=== PATIENT | male | born 1960 | race Caucasian/White ===

== ENCOUNTER 2020-03-01 18:37 | Inpatient (IN) | payer SELFPAY ==
[~2020-03-01] VITALS: Ht 175.3 cm; Wt 65.9 kg
--- NOTE | 2020-03-01 19:21 | NUR ---
labs drawn by analytical laboratory technician
[2020-03-01 19:31] LABS: BASOPHILS # (AUTO) 0.1 X10'3 (0-0.2); BASOPHILS % (AUTO) 0.5 % (0-1); EOSINOPHILS # (AUTO) 0.1 X10'3 (0-0.9); EOSINOPHILS % (AUTO) 0.4 % (0-6); HEMATOCRIT 25.1 % (42.0-52.0); HEMOGLOBIN 8.2 g/dl (14.0-17.9); LYMPHOCYTES # (AUTO) 1.6 X10'3 (1.1-4.8); MEAN CORPUSCULAR HEMOGLOBIN 35.9 PG (27.0-31.0); MEAN CORPUSCULAR HGB CONC 32.5 g/dL (33.0-36.5); MEAN CORPUSCULAR VOLUME 110.3 FL (78-98); MEAN PLATELET VOLUME 9.1 FL (7.4-10.4); MONOCYTES # (AUTO) 1.7 X10'3 (0-0.9); MONOCYTES % (AUTO) 9.3 % (2-12); NEUTROPHILS # (AUTO) 14.5 X10'3 (1.8-7.7); NEUTROPHILS % (AUTO) 80.8 % (42-75); PLATELET COUNT 255 X10'3 (140-440); RED BLOOD COUNT 2.28 X10'6 (4.70-6.10); RED CELL DISTRIBUTION WIDTH 19.6 % (11.5-14.5); WHITE BLOOD COUNT 17.9 X10'3 (4.5-11.0)
[2020-03-01 19:48] LABS: PARTIAL THROMBOPLASTIN TIME 27 SECONDS (22-32)
[2020-03-01 19:52] LABS: ALANINE AMINOTRANSFERASE 103 U/L (12-78); ALBUMIN 2.1 G/DL (3.4-5.0); ALKALINE PHOSPHATASE 271 IU/L (46-116); BLOOD UREA NITROGEN 27 MG/DL (7-18); BUN/CREATININE RATIO 27.8 (5.4-32.0); CHLORIDE 103 MMOL/L (99-107); CREATININE 0.97 MG/DL (0.60-1.10); LIPASE 182 U/L (73-393); eGFR 79 ML/MIN
[2020-03-01 20:03] LABS: PLATELET ESTIMATE NORMAL
[2020-03-01 20:04] LABS: ANISOCYTOSIS 2+; POIKILOCYTOSIS 2+; POLYCHROMASIA 2+
[2020-03-01 20:07] LABS: ASPARTATE AMINO TRANSFERASE 194 U/L (10-37)
[2020-03-01 20:09] LABS: ALBUMIN/GLOBULIN RATIO 0.4 (1.1-1.5); ANION GAP 14 (8-16); GLUCOSE 130 MG/DL (70-104); SODIUM 142 MMOL/L (135-145); TOTAL PROTEIN 7.6 G/DL (6.4-8.2)
[2020-03-01 20:23] LABS: URINE AMPHETAMINE SCREEN NEGATIVE (Neg); URINE BARBITUATE SCREEN NEGATIVE (Neg); URINE BENZODIAZEPINES SCREEN NEGATIVE (Neg); URINE CANNABINOID SCREEN NEGATIVE (Neg); URINE COCAINE SCREEN NEGATIVE (Neg); URINE METHADONE SCREEN NEGATIVE (Neg); URINE OPIATE SCREEN NEGATIVE (Neg); URINE PHENCYCLIDINE SCREEN NEGATIVE (Neg)
[2020-03-01 20:23] LABS: CALCIUM 8.8 MG/DL (8.5-10.1); ETHANOL < 0.010 GM/DL (0.0-0.010)
[2020-03-01 20:26] LABS: ACETAMINOPHEN < 2.0 UG/ML (10-30); BILIRUBIN,TOTAL 27.3 MG/DL (0.1-1.0)
[2020-03-01 20:27] LABS: CLARITY,URINE Cloudy (Clear); COLOR,URINE BROWN (Yellow); UA COLLECTION TYPE CLN CATCH MIDSTREAM
[2020-03-01 20:34] LABS: BACTERIA,URINE NONE SEEN /HPF (Neg)
[2020-03-01 20:35] LABS: SQUAMOUS EPITHELIAL CELL,UR NONE SEEN /LPF (FEW); TRANSITIONAL EPI CELLS,URINE MODERATE /HPF
[2020-03-01 20:36] LABS: SPERM FEW /HPF (NEGATIVE)
[2020-03-01 20:37] LABS: RBC,URINE 0-2 /HPF (0-2); WBC,URINE 0-4 /HPF (0-4)
[2020-03-01] MEDS ORDERED: ondansetron/PF 4mg/2ml inj IV PRN (20:50)
[2020-03-01] MEDS ORDERED: diphenhydrAMINE 25mg capsule PO PRN (20:50)
[2020-03-01] MEDS ORDERED: magnesium Cl slow-release 64mg tablet PO PRN (20:50)
[2020-03-01] MEDS ORDERED: potassium Cl 20 mEq SR tablet PO PRN ×2 (20:50)
[2020-03-01] MEDS ORDERED: magnesium 2GM in 50ml NS 50 ML IV PRN (20:50)
[2020-03-01] MEDS ORDERED: morphine 2 MG/ML inj. syringe IV PRN (20:50)
[2020-03-01] MEDS ORDERED: acetaminophen 325mg tablet PO PRN (20:50)
[2020-03-01] MEDS ORDERED: potassium CL 10mEq/100ml bag 100 ML IV PRN ×2 (20:50)
[2020-03-01] MEDS ORDERED: magnesium 4gm in 100ml NS 100 ML IV PRN (20:50)
[2020-03-01] MEDS ORDERED: temazepam 15mg capsule PO PRN (21:00)
[2020-03-01 23:00] VITALS: BP 122/79
[2020-03-01] MEDS: normal saline 1000ml 1,000 ML IV SCH (23:14)
[2020-03-02] VITALS (11 sets, daily range): BP systolic 97–128; BP diastolic 58–77
[2020-03-02 05:44] LABS: BASOPHILS # (AUTO) 0.1 X10'3 (0-0.2); BASOPHILS % (AUTO) 0.6 % (0-1); EOSINOPHILS # (AUTO) 0.1 X10'3 (0-0.9); EOSINOPHILS % (AUTO) 0.3 % (0-6); HEMATOCRIT 23.5 % (42.0-52.0); HEMOGLOBIN 7.8 g/dl (14.0-17.9); LYMPHOCYTES % (AUTO) 11.7 % (21-51); MEAN CORPUSCULAR HEMOGLOBIN 36.2 PG (27.0-31.0); MEAN CORPUSCULAR HGB CONC 33.2 g/dL (33.0-36.5); MEAN CORPUSCULAR VOLUME 109.1 FL (78-98); MEAN PLATELET VOLUME 8.9 FL (7.4-10.4); MONOCYTES # (AUTO) 1.6 X10'3 (0-0.9); MONOCYTES % (AUTO) 9.2 % (2-12); NEUTROPHILS # (AUTO) 13.3 X10'3 (1.8-7.7); NEUTROPHILS % (AUTO) 78.2 % (42-75); PLATELET COUNT 226 X10'3 (140-440); RED BLOOD COUNT 2.16 X10'6 (4.70-6.10); RED CELL DISTRIBUTION WIDTH 19.2 % (11.5-14.5)
[2020-03-02 05:48] LABS: ALBUMIN 1.9 G/DL (3.4-5.0); ANION GAP 9 (8-16); BLOOD UREA NITROGEN 26 MG/DL (7-18); BUN/CREATININE RATIO 34.2 (5.4-32.0); CALCIUM 8.6 MG/DL (8.5-10.1); CHLORIDE 104 MMOL/L (99-107); CREATININE 0.76 MG/DL (0.60-1.10); SODIUM 137 MMOL/L (135-145); TOTAL CARBON DIOXIDE 24.1 MMOL/L (24-32); eGFR > 90 ML/MIN
[2020-03-02 05:49] LABS: GLUCOSE 96 MG/DL (70-104); POTASSIUM 4.3 MMOL/L (3.5-5.1)
[2020-03-02] MEDS: heparin, porcine 5000 units/ml vial SQ SCH ×2 (06:53→20:00)
[2020-03-02] MEDS: K and/or MAG REPLACEMENT MC SCH ×2 (06:54→20:00)
[2020-03-02 07:48] LABS: PLATELET ESTIMATE NORMAL
[2020-03-02 07:49] LABS: ANISOCYTOSIS 2+
[2020-03-02 07:50] LABS: POLYCHROMASIA 1+
[2020-03-02 07:56] LABS: SCHISTOCYTES FEW
[2020-03-02] MEDS: docusate sod 100mg capsule PO SCH ×2 (08:00→20:00)
[2020-03-02] MEDS ORDERED: NO HOME MEDS (10:16)
--- NOTE | 2020-03-02 14:04 | NUR ---
PAGER ID: [phone] MESSAGE: Shabbir Pina 345B : is this patient getting IR procedure? I don't see any orders and he is hungry? yana [phone]
[2020-03-02] MEDS ORDERED: gelatin sponge, absorbable (Gelfoam 12-7MM) sponge TP ONE (15:08)
[2020-03-02] MEDS ORDERED: midazolam 2 mg/2 ml injection ONE ×2 (15:08→15:36)
[2020-03-02] MEDS ORDERED: fentaNYL/PF 50MCG/1 ML 2ML syringe ONE (15:08)
[2020-03-02] MEDS ORDERED: LIDOcaine 1%/PF 5ML 10 MG/ML VIAL ONE (15:08)
[2020-03-02] MEDS ORDERED: HYDROcodone/acetaminophen 5mg/325mg tablet PO PRN (16:20)
--- NOTE | 2020-03-02 18:12 | NUR ---
Problems reprioritized. Patient report given, questions answered & plan of care reviewed with JUAN Kim.
--- NOTE | 2020-03-02 18:30 | NUR ---
Patient in room [facility]. I have received report from NEO MARTINEZ and had the opportunity to ask questions and assume patient care.
--- NOTE | 2020-03-02 21:18 | NUR ---
PAGED DR. CASTILLO TO INFORM LACTIC ACID OF 3.0, AWAITING CALL BACK.
--- NOTE | 2020-03-02 21:23 | NUR ---
DR. CASTILLO CALLED BACK AND WAS INFORMED ABOUT PATIENT'S 2HR LACTIC IS 3.0 WITH ORDER TO GIVE ROCEPHIN NOW.
[2020-03-02] MEDS ORDERED: CefTRIAXone/D5W-Rocephin 1gm 50 ML IV ONE (21:30)
[2020-03-03] VITALS: BP 118/72
[2020-03-03] MEDS: normal saline 1000ml 1,000 ML IV SCH (02:07)
--- NOTE | 2020-03-03 06:26 | NUR ---
Problems reprioritized. Patient report given, questions answered & plan of care reviewed with NEO MARTINEZ.
[2020-03-03 07:15] VITALS: BP 108/69
[2020-03-03] MEDS: CefTRIAXone 2gm/D5W 50ml 50 ML IV SCH (07:21)
[2020-03-03] MEDS: docusate sod 100mg capsule PO SCH ×2 (07:23→19:52)
[2020-03-03] MEDS: heparin, porcine 5000 units/ml vial SQ SCH ×2 (07:23→19:54)
[2020-03-03] MEDS: K and/or MAG REPLACEMENT MC SCH ×2 (07:23→20:00)
[2020-03-03 08:15] LABS: BASOPHILS # (AUTO) 0.1 X10'3 (0-0.2); BASOPHILS % (AUTO) 0.5 % (0-1); EOSINOPHILS % (AUTO) 0.1 % (0-6); HEMOGLOBIN 7.6 g/dl (14.0-17.9); LYMPHOCYTES # (AUTO) 1.5 X10'3 (1.1-4.8); LYMPHOCYTES % (AUTO) 8.4 % (21-51); MEAN CORPUSCULAR HGB CONC 33.1 g/dL (33.0-36.5); MEAN CORPUSCULAR VOLUME 111.8 FL (78-98); MEAN PLATELET VOLUME 9.6 FL (7.4-10.4); MONOCYTES # (AUTO) 1.8 X10'3 (0-0.9); MONOCYTES % (AUTO) 10.2 % (2-12); NEUTROPHILS # (AUTO) 14.4 X10'3 (1.8-7.7); NEUTROPHILS % (AUTO) 80.8 % (42-75); PLATELET COUNT 253 X10'3 (140-440); RED BLOOD COUNT 2.06 X10'6 (4.70-6.10); RED CELL DISTRIBUTION WIDTH 18.9 % (11.5-14.5); WHITE BLOOD COUNT 17.8 X10'3 (4.5-11.0)
[2020-03-03 08:32] LABS: ALBUMIN 1.7 G/DL (3.4-5.0); ANION GAP 8 (8-16); CALCIUM 8.5 MG/DL (8.5-10.1); CHLORIDE 104 MMOL/L (99-107); SODIUM 136 MMOL/L (135-145); TOTAL CARBON DIOXIDE 23.8 MMOL/L (24-32)
[2020-03-03 08:34] LABS: CREATININE 0.85 MG/DL (0.60-1.10); GLUCOSE 126 MG/DL (70-104); POTASSIUM 4.3 MMOL/L (3.5-5.1); eGFR > 90 ML/MIN
[2020-03-03 08:58] LABS: BLOOD UREA NITROGEN 15 MG/DL (7-18); BUN/CREATININE RATIO 17.6 (5.4-32.0)
[2020-03-03 09:12] LABS: PLATELET ESTIMATE NORMAL
[2020-03-03 09:14] LABS: ANISOCYTOSIS 2+; HYPOCHROMASIA 1+; POLYCHROMASIA 1+; SCHISTOCYTES 1+; TARGET CELLS 1+
--- NOTE | 2020-03-03 11:46 | NUR ---
PAGER ID: [phone] MESSAGE: Shabbir Pina 345B: lactic acid increasing again. last draw was 2.9. thank you! yana [id number]
[2020-03-03 12:01] VITALS: BP 106/64
[2020-03-03] MEDS ORDERED: sincalide inj 1.3 MCG in normal saline 50ml IV soln 50 ML IV PRN (15:35)
--- NOTE | 2020-03-03 17:55 | NUR ---
Problems reprioritized. Patient report given, questions answered & plan of care reviewed with JUAN Kim.
--- NOTE | 2020-03-03 18:30 | NUR ---
Patient in room [facility]. I have received report from NEO MARTINEZ and had the opportunity to ask questions and assume patient care.
[2020-03-03] MEDS: HYDROcodone/acetaminophen 5mg/325mg tablet PO PRN (19:50)
[2020-03-03] MEDS: lactobacillus rhamnosus 10,000 MMU CELLS/CAPSULE PO SCH (19:52)
[2020-03-03 20:00] VITALS: BP 113/74
[2020-03-04] VITALS: BP 103/61
--- NOTE | 2020-03-04 06:30 | NUR ---
Problems reprioritized. Patient report given, questions answered & plan of care reviewed with GUILLERMO MARTINEZ.
[2020-03-04 07:00] VITALS: BP 121/75
[2020-03-04] MEDS: CefTRIAXone 2gm/D5W 50ml 50 ML IV SCH (07:30)
[2020-03-04] MEDS: lactobacillus rhamnosus 10,000 MMU CELLS/CAPSULE PO SCH ×2 (07:30→19:56)
[2020-03-04] MEDS: docusate sod 100mg capsule PO SCH ×2 (07:30→19:56)
[2020-03-04] MEDS: heparin, porcine 5000 units/ml vial SQ SCH ×2 (07:31→20:00)
[2020-03-04] MEDS: K and/or MAG REPLACEMENT MC SCH ×2 (07:38→20:00)
[2020-03-04 07:51] LABS: HEMOGLOBIN 7.8 g/dl (14.0-17.9); WHITE BLOOD COUNT 18.9 X10'3 (4.5-11.0)
[2020-03-04 07:54] LABS: BASOPHILS # (AUTO) 0.1 X10'3 (0-0.2); BASOPHILS % (AUTO) 0.4 % (0-1); EOSINOPHILS % (AUTO) 0 % (0-6); HEMATOCRIT 22.8 % (42.0-52.0); LYMPHOCYTES # (AUTO) 1.6 X10'3 (1.1-4.8); LYMPHOCYTES % (AUTO) 8.6 % (21-51); MEAN CORPUSCULAR HEMOGLOBIN 37.8 PG (27.0-31.0); MEAN CORPUSCULAR HGB CONC 34.2 g/dL (33.0-36.5); MEAN CORPUSCULAR VOLUME 110.7 FL (78-98); MEAN PLATELET VOLUME 9.2 FL (7.4-10.4); MONOCYTES # (AUTO) 1.7 X10'3 (0-0.9); MONOCYTES % (AUTO) 8.9 % (2-12); NEUTROPHILS # (AUTO) 15.5 X10'3 (1.8-7.7); NEUTROPHILS % (AUTO) 82.1 % (42-75); PLATELET COUNT 260 X10'3 (140-440); RED BLOOD COUNT 2.06 X10'6 (4.70-6.10); RED CELL DISTRIBUTION WIDTH 18.8 % (11.5-14.5)
[2020-03-04 08:18] LABS: ALANINE AMINOTRANSFERASE 107 U/L (12-78); ALBUMIN 1.7 G/DL (3.4-5.0); ALKALINE PHOSPHATASE 256 IU/L (46-116); ANION GAP 8 (8-16); BLOOD UREA NITROGEN 23 MG/DL (7-18); CHLORIDE 105 MMOL/L (99-107); MAGNESIUM 2.2 MG/DL (1.5-2.4); SODIUM 137 MMOL/L (135-145); TOTAL CARBON DIOXIDE 24.1 MMOL/L (24-32)
[2020-03-04 08:19] LABS: ANISOCYTOSIS 2+; PLATELET ESTIMATE NORMAL; POIKILOCYTOSIS 1+; POLYCHROMASIA 2+; TARGET CELLS FEW
[2020-03-04 08:30] LABS: ASPARTATE AMINO TRANSFERASE 173 U/L (10-37)
[2020-03-04 08:32] LABS: BILIRUBIN,TOTAL 27.4 MG/DL (0.1-1.0)
[2020-03-04 08:33] LABS: ALBUMIN/GLOBULIN RATIO 0.3 (1.1-1.5); BUN/CREATININE RATIO 25.8 (5.4-32.0); CREATININE 0.89 MG/DL (0.60-1.10); GLUCOSE 119 MG/DL (70-104); TOTAL PROTEIN 6.6 G/DL (6.4-8.2); eGFR 87 ML/MIN
[2020-03-04 11:00] VITALS: BP 117/72
[2020-03-04] MEDS: piperacillin/tazo 3.375gm/50ml 50 ML IV SCH (16:14)
--- NOTE | 2020-03-04 18:14 | NUR ---
Problems reprioritized. Patient report given, questions answered & plan of care reviewed with Julio MARTINEZ.
--- NOTE | 2020-03-04 18:30 | NUR ---
Patient in room [facility]. I have received report from GUILLERMO MARTINEZ and had the opportunity to ask questions and assume patient care.
[2020-03-04] MEDS: HYDROcodone/acetaminophen 5mg/325mg tablet PO PRN (19:58)
[2020-03-04 20:00] VITALS: BP 117/74
[2020-03-05] VITALS: BP 116/74
[2020-03-05] MEDS: piperacillin/tazo 3.375gm/50ml 50 ML IV SCH ×3 (00:16→15:56)
[2020-03-05] MEDS: normal saline 1000ml 1,000 ML IV SCH (00:16)
[2020-03-05 05:09] LABS: BASOPHILS # (AUTO) 0.1 X10'3 (0-0.2); BASOPHILS % (AUTO) 0.5 % (0-1); EOSINOPHILS % (AUTO) 0 % (0-6); HEMATOCRIT 23.7 % (42.0-52.0); HEMOGLOBIN 7.8 g/dl (14.0-17.9); LYMPHOCYTES # (AUTO) 1.2 X10'3 (1.1-4.8); LYMPHOCYTES % (AUTO) 6.1 % (21-51); MEAN CORPUSCULAR HEMOGLOBIN 36.4 PG (27.0-31.0); MEAN CORPUSCULAR HGB CONC 32.7 g/dL (33.0-36.5); MEAN CORPUSCULAR VOLUME 111.4 FL (78-98); MEAN PLATELET VOLUME 9.5 FL (7.4-10.4); MONOCYTES # (AUTO) 1.8 X10'3 (0-0.9); MONOCYTES % (AUTO) 9.2 % (2-12); NEUTROPHILS # (AUTO) 16.3 X10'3 (1.8-7.7); NEUTROPHILS % (AUTO) 84.2 % (42-75); PLATELET COUNT 285 X10'3 (140-440); RED BLOOD COUNT 2.13 X10'6 (4.70-6.10); RED CELL DISTRIBUTION WIDTH 18.9 % (11.5-14.5); WHITE BLOOD COUNT 19.4 X10'3 (4.5-11.0)
[2020-03-05 05:45] LABS: ANISOCYTOSIS 2+; PLATELET ESTIMATE NORMAL; TOTAL CELLS COUNTED 100
[2020-03-05 05:46] LABS: SCHISTOCYTES 1+
[2020-03-05 05:47] LABS: POLYCHROMASIA 2+
--- NOTE | 2020-03-05 06:40 | NUR ---
Problems reprioritized. Patient report given, questions answered & plan of care reviewed with KANU MARTINEZ.
[2020-03-05 07:00] VITALS: BP 109/68
[2020-03-05] MEDS: heparin, porcine 5000 units/ml vial SQ SCH ×2 (08:00→20:06)
[2020-03-05] MEDS: K and/or MAG REPLACEMENT MC SCH ×2 (08:00→20:17)
[2020-03-05] MEDS: docusate sod 100mg capsule PO SCH ×2 (08:36→20:05)
[2020-03-05] MEDS: lactobacillus rhamnosus 10,000 MMU CELLS/CAPSULE PO SCH ×2 (08:36→20:05)
[2020-03-05 11:00] VITALS: BP 125/80
--- NOTE | 2020-03-05 18:30 | NUR ---
Patient in room [facility]. I have received report from JUAN Rodriguez and had the opportunity to ask questions and assume patient care with JUAN Villarreal. Addendum: 03/05/20 at 2308 by Yessenia Floyd RN Amended: Links added.
--- NOTE | 2020-03-05 18:37 | NUR ---
Problems reprioritized. Patient report given, questions answered & plan of care reviewed with TYRESE/ ANDREA MARTINEZ.
--- NOTE | 2020-03-05 18:52 | NUR ---
Patient in room [facility]. I have received report from Cherelle MARTINEZ and had the opportunity to ask questions and assume patient care.
[2020-03-05 20:00] VITALS: BP 129/86
[2020-03-05 23:51] VITALS: BP 114/76
[2020-03-06] MEDS: piperacillin/tazo 3.375gm/50ml 50 ML IV SCH ×3 (00:02→16:26)
[2020-03-06 05:24] LABS: BASOPHILS # (AUTO) 0.1 X10'3 (0-0.2); BASOPHILS % (AUTO) 0.3 % (0-1); EOSINOPHILS % (AUTO) 0 % (0-6); HEMATOCRIT 24.8 % (42.0-52.0); HEMOGLOBIN 8.3 g/dl (14.0-17.9); LYMPHOCYTES # (AUTO) 1.7 X10'3 (1.1-4.8); LYMPHOCYTES % (AUTO) 7.6 % (21-51); MEAN CORPUSCULAR HEMOGLOBIN 37.3 PG (27.0-31.0); MEAN CORPUSCULAR HGB CONC 33.4 g/dL (33.0-36.5); MEAN CORPUSCULAR VOLUME 111.6 FL (78-98); MEAN PLATELET VOLUME 9.6 FL (7.4-10.4); MONOCYTES # (AUTO) 1.9 X10'3 (0-0.9); MONOCYTES % (AUTO) 8.9 % (2-12); NEUTROPHILS # (AUTO) 18.1 X10'3 (1.8-7.7); NEUTROPHILS % (AUTO) 83.2 % (42-75); PLATELET COUNT 287 X10'3 (140-440); RED BLOOD COUNT 2.22 X10'6 (4.70-6.10); WHITE BLOOD COUNT 21.8 X10'3 (4.5-11.0)
--- NOTE | 2020-03-06 06:04 | NUR ---
Patient in room [facility]. I have received report from Klaudia MARTINEZ and had the opportunity to ask questions and assume patient care.
--- NOTE | 2020-03-06 06:09 | NUR ---
Problems reprioritized. Patient report given, questions answered & plan of care reviewed with Alona MARTINEZ.
--- NOTE | 2020-03-06 06:21 | NUR ---
Problems reprioritized. Patient report given, questions answered & plan of care reviewed with JUAN Sage. Agree with nursing assessment done by JUAN Villarreal. Addendum: 03/06/20 at 0622 by Yessenia Floyd RN Amended: Links added.
[2020-03-06 06:23] LABS: ANISOCYTOSIS 2+; PLATELET ESTIMATE NORMAL; POLYCHROMASIA 1+; SCHISTOCYTES 1+
[2020-03-06] MEDS: lactobacillus rhamnosus 10,000 MMU CELLS/CAPSULE PO SCH ×2 (07:27→21:09)
[2020-03-06] MEDS: heparin, porcine 5000 units/ml vial SQ SCH ×2 (07:27→20:45)
[2020-03-06] MEDS: docusate sod 100mg capsule PO SCH ×2 (07:28→21:09)
[2020-03-06] MEDS: K and/or MAG REPLACEMENT MC SCH ×2 (08:00→20:45)
[2020-03-06 08:23] VITALS: BP 116/77
[2020-03-06 11:40] VITALS: BP 116/75
--- NOTE | 2020-03-06 13:11 | NUR ---
Initial: Pt admit w/ jaundice found to have multiple hepatic masses 10cm largest pending biopsy results per MD note. GUSTAVO d/w RN regarding folic/B12 supplementation given MCV 111.6 and DX. PO 25-50% avg regular diet fluctuating w/ poor appetite noted per MD note. Ensure enlive TIDWM added to meals for additional protein needs; MD notified. LBM 03/03 receiving routine colace. Will continue to monitor. Rec: 1. continue regular diet; encourage PO 2. ensure enlive TIDWM 3. routine bowel care 4. weekly wts Addendum: 03/06/20 at [address] Amended: Links added. Addendum: 03/06/20 at [address] Luis [address] RD CORRECTION: Rec: 1. continue regular diet; encourage PO 2. ensure enlive TIDWM 3. routine bowel care 4. folic/B12 supplementation per MD given DX; MCV 111.6 5. weekly wts
--- NOTE | 2020-03-06 18:55 | NUR ---
Patient in room [facility]. I have received report from Alona MARTINEZ and had the opportunity to ask questions and assume patient care.
[2020-03-06 20:00] VITALS: BP 122/76
[2020-03-06] MEDS: HYDROcodone/acetaminophen 5mg/325mg tablet PO PRN (21:18)
--- NOTE | 2020-03-06 23:14 | NUR ---
Patient refused heparin. Pt was educated on the purpose of heparin and benefits of the medication
[2020-03-07 00:07] VITALS: BP 108/69
[2020-03-07] MEDS: piperacillin/tazo 3.375gm/50ml 50 ML IV SCH ×2 (00:29→07:35)
--- NOTE | 2020-03-07 06:19 | NUR ---
Problems reprioritized. Patient report given, questions answered & plan of care reviewed with Alona MARTINEZ.
--- NOTE | 2020-03-07 06:25 | NUR ---
I have received report from Regina Moran RN and had the opportunity to ask questions and assume patient care.
[2020-03-07] MEDS: K and/or MAG REPLACEMENT MC SCH (07:15)
[2020-03-07] MEDS: heparin, porcine 5000 units/ml vial SQ SCH (07:35)
[2020-03-07] MEDS: lactobacillus rhamnosus 10,000 MMU CELLS/CAPSULE PO SCH (07:35)
[2020-03-07] MEDS: docusate sod 100mg capsule PO SCH (07:35)
[2020-03-07] MEDS ORDERED: cyanocobalamin 500mcg tablet PO SCH (08:00)
[2020-03-07] MEDS ORDERED: folic acid 1mg tablet PO SCH (08:00)
[2020-03-07 12:21] VITALS: BP 113/73
[2020-03-07] MEDS ORDERED: CYAN500T63 PO (13:49)
[2020-03-07] MEDS ORDERED: folic acid tablet PO (13:49)
--- NOTE | 2020-03-07 14:44 | NUR ---
Patient being discharged. Waiting on ride. All paper work completed on nursing end. Patient dressing self. Education completed, medications called into patients preferred pharmacy. Phone number and address provided on paper work for [facility], patient aware. All belongings in patients possession. All questions answered.
--- NOTE | 2020-03-07 15:43 | NUR ---
All belongings with patient on discharge. Addendum: 03/07/20 at 1544 by Alona Jones RN Amended: Links added.
[2020-03-08] MEDS ORDERED: OXYC5CAP19 PO (16:11)
== END 2020-03-07 15:42 | disposition home or self-care (01) | DRG 437 ==
LOC: ER 18:38 → ED HOLD 20:48 → SUR 3N 22:55
PROVIDERS: ADMIT Internal Medicine; ATTEND Family Medicine
PROC: 0FB13ZX Excision of Right Lobe Liver, Percutaneous Approach, Diagnostic (ICD-10-PCS; principal; 2020-03-02)
DX: C22.0 Liver cell carcinoma (principal); D63.1 Anemia in chronic kidney disease; D72.829 Elevated white blood cell count, unspecified; K80.20 Calculus of gallbladder without cholecystitis without obstruction; N18.9 Chronic kidney disease, unspecified
CPT/HCPCS: 36415; 47000; 74176; 76942; 80048; 80053; 80305; 80320; 80329; 81001; 82140; 82977; 83605; 83690; 83735; 84145; 84443; 85025; 85610; 85730; 87040; 87081; 87088; 93005; 99285; G0378; J0696; J1644; J2250; J2543; J3010; J7030